=== PATIENT | male | born 1965 | race Caucasian/White ===

== ENCOUNTER → 2016-09-11 | Outpatient (CLI) | payer BC | END | disposition home or self-care (01) | LOC: PCVCIMAG 13:24 | PROVIDERS: ATTEND Internal Medicine Cardiovascular Disease | DX: E78.00 Pure hypercholesterolemia, unspecified (principal); R00.2 Palpitations; R07.9 Chest pain, unspecified | CPT/HCPCS: 36415; 80061; 93005; 93325; 93351 ==

== ENCOUNTER → 2016-10-16 | Outpatient (CLI) | payer BC ==
--- NOTE | 2016-10-16 12:07 | PCVCIMAG ---
APPROVED REPORT Study performed: 10/16/2016 08:35:58 EXAM: Comprehensive 2D, Doppler, and color-flow Echocardiogram Patient Location: Echo lab Status: routine Other Information Study Quality: Fair Indications Palpitations Chest Pain Hypertension/HDD ascending aortic aneurysm 2D Dimensions IVSd: 13.63 (7-11mm)LVOT Diam: 22.86 (18-24mm) LVDd: 47.33 mm PWd: 10.76 (7-11mm)Ascending Ao: 45.46 (22-36mm) LVDs: 30.91 (25-40mm)Aortic Arch: 28.0 (22-36mm) Left Atrium: 46.07 (27-40mm)Desc Ao: 20.0 (20-30mm) Aortic Root: 29.96 mm LV Single Plane 4CH: 58.98 % LV Single Plane 2CH: 59.23 %Joshua's LVEF: 59.10 % Biplane EF: 58.9 % Volumes Left Atrial Volume (Systole) Single Plane 4CH: 66.44 mLSingle Plane 2CH: 61.06 mL LA ESV Index: 29.00 mL/m2 Aortic Valve AoV Peak Jaime.: 1.48 m/s AO Peak Gr.: 8.79 mmHgLVOT Max P.38 mmHg LVOT Max V: 1.16 m/s ISABEL Vmax: 3.21 cm2 Mitral Valve E/A Ratio: 0.9 MV Decel. Time: 251.76 ms MV E Max Jaime.: 1.12 m/s MV A Jaime.: 1.18 m/s IVRT: 83.04 ms TDI E/Lateral E': 12.44E/Medial E': 16.00 Medial E' Jaime.: 0.07 m/s Lateral E' Jaime.: 0.09 m/s Pulmonary Valve PV Peak Jaime.: 1.06 m/sPV Peak Gr.: 4.49 mmHg Pulmonary Vein P Vein S: 0.59 m/sP Vein A: 0.32 m/s P Vein D: 0.45 m/sP Vein A Dur.: 93.4 msec P Vein S/D Ratio: 1.31 Tricuspid Valve TR Peak Jaime.: 2.00 m/s TR Peak Gr.: 15.99 mmHg TV Vmax: 0.72 m/s Left Ventricle The left ventricle is normal size. There is normal LV segmental wall motion. Mild concentric left ventricular hypertrophy. Left ventricular systolic function is normal. The left ventricular ejection fraction is within the normal range. LVEF is 55-60%. Grade I - abnormal relaxation pattern. Right Ventricle The right ventricle is normal size. The right ventricular systolic function is normal. Atria The left atrium size is normal. The right atrium size is normal. Aortic Valve The aortic valve is normal in structure. No aortic regurgitation is present. There is no aortic valvular stenosis. Mitral Valve The mitral valve is normal in structure. There is no mitral valve regurgitation noted. No evidence of mitral valve stenosis. Tricuspid Valve The tricuspid valve is normal in structure. There is trivial tricuspid valve regurgitation noted. Pulmonic Valve The pulmonary valve is normal in structure. There is mild pulmonic valvular regurgitation. Great Vessels The aortic root is normal in size. The ascending aorta is moderately dilated with a diameter of 4.5cm. IVC is normal in size and collapses with >50% inspiration Pericardium There is no pericardial effusion. There is no pleural effusion. <Conclusion> The left ventricle is normal size. Mild concentric left ventricular hypertrophy. Left ventricular systolic function is normal. The right ventricle is normal size. The left atrium size is normal. The aortic valve is normal in structure. The mitral valve is normal in structure. There is no pericardial effusion.
== END | disposition home or self-care (01) ==
LOC: PCVCIMAG 08:23
PROVIDERS: ATTEND Internal Medicine Cardiovascular Disease
DX: I11.9 Hypertensive heart disease without heart failure (principal); I07.1 Rheumatic tricuspid insufficiency; I37.1 Nonrheumatic pulmonary valve insufficiency
CPT/HCPCS: 93306

== ENCOUNTER → 2017-11-09 | Outpatient (CLI) | payer BC | END | disposition home or self-care (01) | LOC: PCVCIMAG 08:11 | DX: I71.2 Thoracic aortic aneurysm, without rupture (principal); R00.2 Palpitations | CPT/HCPCS: 93306 ==

== ENCOUNTER → 2018-02-16 | Outpatient (CLI) | payer BC ==
--- NOTE | 2018-02-16 09:05 | PCVCIMAG ---
APPROVED REPORT Study performed: 02/16/2018 08:05:29 EXAM: Comprehensive 2D, Doppler, and color-flow Echocardiogram Patient Location: Echo lab Status: routine BSA: 2.47 HR: 68 bpmBP: 140/96 mmHg Rhythm: NSR Other Information Study Quality: Adequate Indications Dyspnea Palpitations Chest Pain Ascending aortic aneurysm 2D Dimensions IVSd: 13.34 (7-11mm) LVDd: 45.16 mm PWd: 13.01 (7-11mm)Ascending Ao: 46.19 (22-36mm) LVDs: 31.56 (25-40mm) Left Atrium: 44.28 (27-40mm) Aortic Root: 34.77 mm LV Single Plane 4CH: 54.17 % LV Single Plane 2CH: 57.48 % Biplane EF: 56.3 % Volumes Left Atrial Volume (Systole) Single Plane 4CH: 74.33 mLSingle Plane 2CH: 78.97 mL LA ESV Index: 32.00 mL/m2 Aortic Valve AoV Peak Jaime.: 1.39 m/s AO Peak Gr.: 7.73 mmHgLVOT Max P.08 mmHg LVOT Max V: 1.32 m/s Mitral Valve E/A Ratio: 0.8 MV Decel. Time: 293.67 ms MV E Max Jaime.: 1.02 m/s MV A Jaime.: 1.25 m/s IVRT: 114.19 ms Pulmonary Valve PV Peak Jaime.: 0.94 m/sPV Peak Gr.: 3.53 mmHg Pulmonary Vein P Vein S: 0.36 m/sP Vein A: 0.33 m/s P Vein D: 0.45 m/sP Vein A Dur.: 128.0 msec P Vein S/D Ratio: 0.80 Tricuspid Valve TR Peak Jaime.: 2.41 m/s TR Peak Gr.: 23.15 mmHg Left Ventricle The left ventricle is normal size. There is normal LV segmental wall motion. Mild concentric left ventricular hypertrophy. Left ventricular systolic function is normal. The left ventricular ejection fraction is within the normal range. LVEF is 55%. Grade I - abnormal relaxation pattern. Right Ventricle The right ventricle is normal size. The right ventricular systolic function is normal. Atria The left atrium size is normal. The right atrium size is normal. Aortic Valve The aortic valve is normal in structure. No aortic regurgitation is present. There is no aortic valvular stenosis. Mitral Valve The mitral valve is normal in structure. Trace mitral regurgitation. No evidence of mitral valve stenosis. Tricuspid Valve The tricuspid valve is normal in structure. Mild tricuspid regurgitation with PAP of 30 mmHg. Pulmonic Valve The pulmonary valve is normal in structure. There is no pulmonic valvular regurgitation. Great Vessels The aortic root is normal in size. The ascending aorta is moderately dilated to 4.5 cm and appears unchanged from previous echocardiogram. IVC is normal in size and collapses >50% with inspiration. Pericardium There is no pericardial effusion. There is no pleural effusion. <Conclusion> The left ventricle is normal size. Mild concentric left ventricular hypertrophy. Left ventricular systolic function is normal. Grade I - abnormal relaxation pattern. The right ventricle is normal size. The left atrium size is normal. The aortic valve is normal in structure. Trace mitral regurgitation. Mild tricuspid regurgitation with PAP of 30 mmHg. The ascending aorta is moderately dilated to 4.5 cm and appears unchanged from previous echocardiogram.
== END | disposition home or self-care (01) ==
LOC: PCVCIMAG 11:02
PROVIDERS: ATTEND Internal Medicine Cardiovascular Disease
DX: I10 Essential (primary) hypertension (principal); R00.2 Palpitations; I71.2 Thoracic aortic aneurysm, without rupture; I07.1 Rheumatic tricuspid insufficiency
CPT/HCPCS: 93306

== ENCOUNTER → 2018-03-02 | Outpatient (CLI) | payer BC ==
--- NOTE | 2018-03-02 10:27 | PCVCIMAG ---
APPROVED REPORT Study performed: 03/02/2018 09:30:41 Exam: Stress Echocardiogram Indication: Chest pain , Hypertension, ABN EKG Patient Location: Echo lab Stress Nurse: Treva Oreilly RN Status: routine Ht: 6 ft 2 in HR: 82 bpm BP: 132/88 mmHg Rhythm: NSR Procedure The patient underwent an Exercise Stress Test using the Christian Protocol. Blood pressure, heart rate, and EKG were monitored. An Echocardiogram was performed by collection technician in four stages in quad fashion. At peak stress, four selected images were obtained and placed side by side with resting images for comparison. Stress Test Details Stress Test: Exercise stress testing was performed using a Christian protocol. HR Resting HR: 82 bpmMax Heart Rate (APMHR): 170 bpm Max HR Achieved: 150 bpmTarget HR (85% APMHR): 144 bpm % of APMHR: 88 Recovery HR: 90 bpm HR response to stress: Normal HR response to stress BP Resting BP: 132/88 mmHg Max BP: 190/80 mmHg Recovery BP: 158/86 mmHg ECG Resting ECG: Sinus Rhythm with early repolarization changes Stress ECG: Sinus Rhythm, nonspecific ST-T abnormalities ST Change: Non-ischemic Arrhythmia: occasional isolated PVCs Recovery ECG: Sinus Rhythm with early repolarization changes Recovery ST Change: Normal Recovery Arrhythmia: None Clinical Reason for Termination: Dyspnea, Maximal effort Stress Symptoms: Dyspnea, Abdominal discomfort Exercise duration: 8 min 21 sec Highest Stage Achieved: Stage 3: 3.4 mph at 14% grade. Exercise capacity: 10.4 METs Overall Exercise Capacity for Age: Normal Scale: Sedentary Angina Score: None Pre-Stress Echo The resting Echocardiogram showed normal left ventricular contractility with an estimated Ejection Fraction of about 55%. Normal wall motion in all segments on baseline images. Post-Stress Echo The stress Echocardiogram showed normal left ventricular contractility with an estimated Ejection Fraction of about 65%. Normal augmentation of wall motion in all segments on post stress images. Clinical No clinical or ECG evidence for ischemia. Conclusion Clinical Response: Non-ischemic Exercise Capacity: Average Stress ECG Response: Non-ischemic Stress Echo Images: Non-ischemic The left ventricle is normal in size and wall thickness in both the rest and stress images. Other Information Study Quality: Adequate <Conclusion> The left ventricle is normal in size and wall thickness in both the rest and stress images.
== END | disposition home or self-care (01) ==
LOC: PCVCIMAG 10:41
PROVIDERS: ATTEND Internal Medicine Cardiovascular Disease
DX: I10 Essential (primary) hypertension (principal); I71.2 Thoracic aortic aneurysm, without rupture; E78.5 Hyperlipidemia, unspecified; R07.9 Chest pain, unspecified; R00.2 Palpitations; R94.31 Abnormal electrocardiogram [ECG] [EKG]
CPT/HCPCS: 93325; 93351